=== PATIENT | female | born 1990 | race Hispanic/Latino ===

== ENCOUNTER 2019-08-12 23:37 | Emergency (ER) | payer OTHER ==
[2019-08-12] MEDS ORDERED: ACETAMINOPHEN EXTRA STRENGTH 500 MG TABLET ONE (23:48)
[2019-08-13 00:53] LABS: RAPID GROUP A STREP NEGATIVE (NEGATIVE)
== END 2019-08-13 01:23 | disposition home or self-care (01) ==
LOC: EDH 23:37
DX: J11.1 Influenza due to unidentified influenza virus with other respiratory manifestations (principal); Z90.49 Acquired absence of other specified parts of digestive tract
CPT/HCPCS: 87804; 87880

== ENCOUNTER 2023-05-28 20:15 | Emergency (ER) | payer BC, MEDICAID ==
[~2023-05-28] VITALS: Ht 154.9 cm; Wt 65.8 kg
[2023-05-28 20:36] LABS: BASOPHILS # (AUTO) 0.04 K/uL (0.00-0.20); BASOPHILS % (AUTO) 0.5 % (0.0-5.0); EOSINOPHILS # (AUTO) 0.28 K/uL (0.00-0.70); EOSINOPHILS % (AUTO) 3.7 % (0.0-8.0); HEMATOCRIT 40.5 % (36-48); IMMATURE GRANULOCYTE ABSOLUTE 0.01 K/uL (0-1); LYMPHOCYTES # (AUTO) 3.1 K/uL (1.0-4.8); LYMPHOCYTES % (AUTO) 41.3 % (21.0-51.0); MEAN CORPUSCULAR HEMOGLOBIN 30.1 pg (27.0-33.0); MEAN CORPUSCULAR HGB CONC 32.8 g/dL (32.0-36.0); MEAN CORPUSCULAR VOLUME 91.6 fL (79-99); MONOCYTES # (AUTO) 0.4 K/uL (0.1-1.0); MONOCYTES % (AUTO) 5.2 % (3.0-13.0); NEUTROPHILS # (AUTO) 3.7 K/uL (1.8-7.7); NEUTROPHILS % (AUTO) 49.2 % (40.0-77.0); PLATELET COUNT (AUTO) 260 K/uL (130-400); RED BLOOD CELL COUNT(AUTO) 4.42 MIL/uL (4.00-5.50); RED CELL DISTRIBUTION WIDTH 13.3 % (11.0-15.5); WHITE BLOOD COUNT (AUTO) 7.5 K/uL (4.8-10.8)
[2023-05-28 20:47] LABS: CREATININE 0.6 mg/dL (0.5-1.5); POTASSIUM 3.5 mmol/L (3.5-5.1)
[2023-05-28 20:49] LABS: INR < 0.93 (0.85-1.15); PROTHROMBIN TIME 10.7 SEC (9.6-11.6)
[2023-05-28 20:50] LABS: PARTIAL THROMBOPLASTIN TIME 28.2 SEC (26.3-35.5)
[2023-05-28 20:52] LABS: ALBUMIN 3.6 g/dL (3.5-5.0); BILIRUBIN,TOTAL 0.3 mg/dL (0.2-1.0); TOTAL PROTEIN, SERUM 7.3 g/dL (6.0-8.3)
[2023-05-28 20:58] LABS: MAGNESIUM 1.9 mg/dL (1.80-2.40)
[2023-05-28 21:03] LABS: B-TYPE NATRIURETIC PEPTIDE 5 pg/mL (0-100)
[2023-05-28 21:19] LABS: D-DIMER 234 ng/mL (0-500)
[2023-05-28] MEDS ORDERED: IBUP-1493 PO (21:25)
[2023-05-28] MEDS ORDERED: CYCL-309 PO (21:25)
[2023-05-28 21:48] VITALS: BP 98/59; PULSE 80; RESP 18; O2SAT 98
== END 2023-05-28 21:52 | disposition home or self-care (01) ==
LOC: EDH 20:15
DX: R07.89 Other chest pain (principal); Z90.49 Acquired absence of other specified parts of digestive tract
CPT/HCPCS: 36415; 71045; 80053; 82550; 83735; 83880; 84484; 85025; 85378; 85610; 85730; 93005